=== PATIENT | female | born 1960 | race American Indian/Alaskan Native ===

== ENCOUNTER 2023-06-09 08:59 | Day surgery (SDC) | payer MEDICARE, MEDICAID ==
[~2023-06-09] VITALS: Ht 157.5 cm; Wt 52.5 kg
[2023-06-09] VITALS (7 sets, daily range): BP systolic 102–133; BP diastolic 64–103; PULSE 59–71; RESP 13–16; TEMP 98.1; O2SAT 98–99
[2023-06-09] MEDS: cefazolin 2gm/D5W 100mL 100 ML IV ONE (05:30)
[~2023-06-09 08:59] MED LIST: BUPIVAcaine/PF 2.5mg/ml (0.25%) 10ml vial ONE; CALCIUM/MAG; HYDR-3972 PO; OMEGA 3; ONDA4TAB12 PO; SUPER LYSINE; TURMERIC; VITAMIN C; VITAMIN D; [UNRECOGNIZED DRUG - OTHER]
[2023-06-09 11:20] LABS: BASOPHILS # (AUTO) 0.1 X10'3 (0-0.2); BASOPHILS % (AUTO) 1.1 % (0-1); EOSINOPHILS # (AUTO) 1.4 X10'3 (0-0.9); EOSINOPHILS % (AUTO) 16.6 % (0-6); LYMPHOCYTES # (AUTO) 2.4 X10'3 (1.1-4.8); LYMPHOCYTES % (AUTO) 28.5 % (21-51); MEAN CORPUSCULAR HGB CONC 33.2 g/dL (33.0-36.5); MEAN CORPUSCULAR VOLUME 87.4 FL (78-98); MEAN PLATELET VOLUME 7.3 FL (7.4-10.4); MONOCYTES # (AUTO) 0.7 X10'3 (0-0.9); NEUTROPHILS # (AUTO) 3.9 X10'3 (1.8-7.7); NEUTROPHILS % (AUTO) 45.8 % (42-75); PRE OP HEMATOCRIT 41.8 % (35.0-45.0); PRE OP HEMOGLOBIN 13.9 g/dL (12.0-16.0); PRE OP PLATELET COUNT 272 X10'3 (140-440); PRE OP WHITE BLOOD COUNT 8.6 10'3 (4.8-10.8); RED BLOOD COUNT 4.78 X10'6 (4.20-5.60); RED CELL DISTRIBUTION WIDTH 13.9 % (11.5-14.5)
[2023-06-09] MEDS: famotidine 20mg tablet PO ONE (11:33)
[2023-06-09] MEDS: ringers solution, lacted 1,000 ML IV SCH (11:33)
[2023-06-09 11:39] LABS: ALBUMIN 3.3 G/DL (3.4-5.0); ALKALINE PHOSPHATASE 83 IU/L (46-116); BLOOD UREA NITROGEN 14 MG/DL (7-18); BUN/CREATININE RATIO 26.4 (10.0-20.0); CALCIUM 8.6 MG/DL (8.5-10.1); CHLORIDE 108 MMOL/L (99-107); CREATININE 0.53 MG/DL (0.40-0.90); PRE OP ALT 33 U/L (30-65); PRE OP ANION GAP 13 (8-16); PRE OP AST 23 U/L (10-37); PRE OP BILIRUB, TOTAL 0.5 MG/DL (0.0-1.0); PRE OP GLUCOSE 94 MG/DL (70-104); PRE OP POTASSIUM 3.8 MMOL/L (3.4-5.1); PRE OP SODIUM 144 MMOL/L (135-145); TOTAL CARBON DIOXIDE 23.5 MMOL/L (24-32); TOTAL PROTEIN 6.7 G/DL (6.4-8.2); eCRCL 86 ML/MIN; eGFR > 90 ML/MIN
[2023-06-09] MEDS ORDERED: fentaNYL/PF 50MCG/1 ML 2ML syringe IV PRN ×2 (12:30)
[2023-06-09] MEDS ORDERED: morphine 2 MG/ML inj. syringe IV PRN (12:30)
[2023-06-09] MEDS ORDERED: labetalol 20mg/4ml (5mg/ml) syringe IV PRN (12:30)
[2023-06-09] MEDS ORDERED: hydrALAZINE 20mg/ml inj. IV PRN (12:30)
[2023-06-09] MEDS ORDERED: ringers solution, lacted 1,000 ML IV SCH (12:30)
[2023-06-09] MEDS ORDERED: morphine 4 MG/ML inj SYRINge IV PRN (12:30)
[2023-06-09] MEDS ORDERED: ondansetron/PF 4mg/2ml inj IV PRN (12:30)
[2023-06-09] MEDS ORDERED: propofol inj 20 ML IV ONE ×2 (12:39→13:17)
[2023-06-09] MEDS ORDERED: ROPIVAcaine 0.5% (5mg/ml) 30ml vial ONE ×2 (12:39)
[2023-06-09] MEDS ORDERED: sevoflurane 250ml liquid IH ONE (12:43)
[2023-06-09] MEDS ORDERED: LIDOcaine 2% (20mg/ml) 5ml vial ONE (12:43)
[2023-06-09] MEDS ORDERED: dexamethasone sod phosphate 10mg/ml inj ONE (12:43)
[2023-06-09] MEDS ORDERED: ondansetron/PF 4mg/2ml inj ONE (13:17)
[2023-06-09] MEDS ORDERED: acetaminophen 1,000mg/100ml IV 100 ML IV ONE (13:17)
[2023-06-09] MEDS: BUPIVAcaine/PF 2.5mg/ml (0.25%) 10ml vial IJ ONE (13:28)
[2023-06-09] MEDS ORDERED: fentaNYL/PF 50MCG/1 ML 2ML syringe ONE (13:57)
== END 2023-06-09 15:19 | disposition home or self-care (01) ==
LOC: PAS 08:59
PROVIDERS: ATTEND Orthopaedic Surgery Hand Surgery
DX: S52.291A Other fracture of shaft of right ulna, initial encounter for closed fracture (principal); S52.391A Other fracture of shaft of radius, right arm, initial encounter for closed fracture; F41.9 Anxiety disorder, unspecified; G43.909 Migraine, unspecified, not intractable, without status migrainosus; Z87.891 Personal history of nicotine dependence; F12.90 Cannabis use, unspecified, uncomplicated; G89.29 Other chronic pain; G89.18 Other acute postprocedural pain; Z98.890 Other specified postprocedural states; Z88.5 Allergy status to narcotic agent; Z23 Encounter for immunization; Z79.899 Other long term (current) drug therapy; W22.10XA Striking against or struck by unspecified automobile airbag, initial encounter; Y93.89 Activity, other specified; Y92.89 Other specified places as the place of occurrence of the external cause; Y99.8 Other external cause status
CPT/HCPCS: 25575; 36415; 64417; 80053; 82948; 85025; 93005; A6222; C1713; J0131; J0690; J1100; J2405; J2704; J2795; J3010; J3490; J7030; J7120; Z7506; Z7508; Z7512; A4215; A4565; A4618; A6449; A7000